=== PATIENT | male | born 2005 | race Caucasian/White ===

== ENCOUNTER 2023-08-20 06:38 | Observation (INO) | payer OTHER ==
[2023-08-19 14:11] VITALS: BMI 33.0
[2023-08-20] MEDS ORDERED: Acetaminophen 500 MG TAB ONE (08:17)
[2023-08-20] MEDS ORDERED: fentaNYL 50 mcg/mL 1 mL Vial ONE ×2 (08:27→08:57)
[2023-08-20] MEDS ORDERED: Midazolam HCl 2 mg/2 ml Vial ONE (08:27)
[2023-08-20] MEDS ORDERED: Bupivacaine PF 0.5% 30 ML VIAL ONE (08:28)
[2023-08-20] MEDS ORDERED: PROPOFOL 20 ML ONE ×2 (08:56→09:56)
[2023-08-20] MEDS ORDERED: Lidocaine 1% PF 5 ML VIAL ONE ×2 (08:57→09:55)
[2023-08-20] MEDS ORDERED: Sevoflurane 250 ML INH ANEST BOTTLE ONE (09:00)
[2023-08-20] MEDS ORDERED: traMADol HCl 50 MG TAB PO PRN ×2 (09:15)
[2023-08-20] MEDS ORDERED: Zolpidem Tartrate 5 MG TAB PO PRN (09:15)
[2023-08-20] MEDS ORDERED: HYDROcodone/Acetaminophen 10/325 mg Tablet PO PRN (09:15)
[2023-08-20] MEDS ORDERED: Ondansetron PF 4 MG/2 ML Vial IVP PRN (09:15)
[2023-08-20] MEDS ORDERED: Ropivacaine 0.2% 550 ML 550 ML NERVE BLCK SCH (09:15)
[2023-08-20] MEDS ORDERED: Promethazine HCl 25 MG/ML VIAL IM PRN ×2 (09:15→11:44)
[2023-08-20] MEDS ORDERED: fentaNYL 50 mcg/mL 1 mL Vial SLOW IVP PRN (09:15)
[2023-08-20] MEDS ORDERED: CEFAZOLIN 2 GM VIAL ONE (09:33)
[2023-08-20] MEDS ORDERED: Sodium Chloride 0.9% 100 ML ONE (09:33)
[2023-08-20] MEDS ORDERED: Dexamethasone 20 MG/5 ML VIAL ONE ×2 (09:55→09:58)
[2023-08-20] MEDS ORDERED: Bupivacaine HCl 0.5%/Epinephrine 1:200,000/PF 30 ml Vial ONE (09:55)
[2023-08-20] MEDS ORDERED: Ondansetron PF 4 MG/2 ML Vial ONE ×2 (09:55→11:18)
[2023-08-20] MEDS ORDERED: PROPOFOL 200 MG/20 ML VIAL ONE (09:55)
[2023-08-20] MEDS ORDERED: Ketorolac Tromethamine 30 MG/ML VIAL ONE ×2 (09:55→11:18)
[2023-08-20] MEDS ORDERED: Milk Of Magnesia 30 ML UDCUP PO PRN (10:09)
[2023-08-20] MEDS ORDERED: Methocarbamol 500 MG TAB PO PRN (10:09)
[2023-08-20] MEDS ORDERED: Bisacodyl 10 MG SUPP PR PRN (10:09)
[2023-08-20] MEDS ORDERED: Acetaminophen 500 MG TAB PO PRN (10:09)
[2023-08-20] MEDS ORDERED: diphenhydrAMINE 50 MG CAP PO PRN (10:09)
[2023-08-20] MEDS ORDERED: HYDROcodone/Acetaminophen 7.5/325 mg Tablet PO PRN ×2 (10:09)
[2023-08-20] MEDS ORDERED: Ondansetron HCl/PF 4 MG/2 ML Vial IVP PRN (11:44)
[2023-08-20] MEDS ORDERED: Fentanyl 250 MCG/5 ML VIAL ONE (12:02)
[2023-08-20] MEDS ORDERED: Meperidine HCl/PF 25 MG/ML VIAL ONE (12:06)
[2023-08-20] MEDS ORDERED: HYDROmorphone 0.5 MG/0.5 ML SYRINGE ONE ×2 (13:36→14:26)
[2023-08-20] MEDS ORDERED: CEFAZOLIN 2 GM in Sodium Chloride 0.9% 100 ML IVPB SCH (14:00)
[2023-08-20] MEDS: Ketorolac Tromethamine 30 MG/ML VIAL IVP SCH ×4 (17:00→23:09)
[2023-08-20] MEDS: Dextrose 5 %-0.45 % NaCl 1,000 ML IV SCH ×2 (18:14→20:26)
[2023-08-20] MEDS: CEFAZOLIN 2 GM in Sodium Chloride 0.9% 100 ML IVPB SCH (18:22)
[2023-08-20] MEDS: Famotidine 20 MG TAB PO SCH (20:25)
[2023-08-20] MEDS: HYDROcodone/Acetaminophen 10/325 mg Tablet PO PRN (20:35)
[2023-08-21] MEDS: Dextrose 5 %-0.45 % NaCl 1,000 ML IV SCH (00:33)
[2023-08-21] MEDS: CEFAZOLIN 2 GM in Sodium Chloride 0.9% 100 ML IVPB SCH (01:14)
[2023-08-21] MEDS: Ketorolac Tromethamine 30 MG/ML VIAL IVP SCH ×3 (01:14→12:05)
[2023-08-21] MEDS: HYDROcodone/Acetaminophen 10/325 mg Tablet PO PRN ×2 (01:23→09:44)
[2023-08-21 09:02] VITALS: BP 155/74; TEMP 97.9
[2023-08-21] MEDS: Famotidine 20 MG TAB PO SCH (09:45)
== END 2023-08-21 12:40 | disposition home or self-care (01) ==
LOC: SDC 06:38 → SURG B 11:48
PROVIDERS: ADMIT Orthopaedic Surgery; ATTEND Orthopaedic Surgery
PROC: 0MRN4JZ Replacement of Right Knee Bursa and Ligament with Synthetic Substitute, Percutaneous Endoscopic Approach (ICD-10-PCS; principal; 2023-08-20)
DX: S83.511A Sprain of anterior cruciate ligament of right knee, initial encounter (principal); S83.241A Other tear of medial meniscus, current injury, right knee, initial encounter; S83.411A Sprain of medial collateral ligament of right knee, initial encounter; X58.XXXA Exposure to other specified factors, initial encounter
CPT/HCPCS: A4306; C1713; C1889; J1100; J1170; J1885; J2175; J2250; J2405; J2704; J2795; J3010; J3490; J7042; S0020

== ENCOUNTER 2025-05-22 16:37 | Emergency (ER) | payer OTHER, SELFPAY ==
[~2025-05-22 16:37] MED LIST: Iopamidol-370 76% 500 ML MDV (1 ML CHARGE) ONE
[2025-05-22 18:44] LABS: Hematocrit 45.0 % (42.0-52.0); Hemoglobin 15.7 g/dL (14.0-18.0); Mean Corpuscular Hemoglobin 28.4 pg (27.0-31.0); Mean Corpuscular Volume 81.4 fL (78.0-98.0); Platelet Count 126 10x3/uL (130-400); Red Blood Cell (RBC) Count 5.53 mill/uL (4.70-6.10); White Blood Cell (WBC) Count 8.23 10x3/uL (4.8-10.8)
[2025-05-22] MEDS ORDERED: Ketorolac Tromethamine 30 MG (1 mL) VIAL ONE (18:47)
[2025-05-22 18:53] LABS: ALT (SGPT) 23 U/L (Less than 45); AST (SGOT) 35 U/L (11-34); Albumin 4.3 g/dL (3.1-4.5); Alkaline Phosphatase 99 U/L (40-110); Anion Gap 12 mmol/L (10-20); BUN (Urea Nitrogen) 8 mg/dL (8.9-20.6); Bilirubin, Total 1.1 mg/dL (0.3-1.2); Calc. Creatinine Clearance 0 mL/min (70-130); Calcium 9.2 mg/dL (7.8-10.44); Carbon Dioxide 21 mmol/L (22-29); Chloride 109 mmol/L (98-107); Globulin 3.5 g/dL (2.4-3.5); Glucose 88 mg/dL (70-105); Potassium 4.1 mmol/L (3.5-5.1); Sodium 138 mmol/L (136-145)
[2025-05-22 19:06] LABS: CAUTI Indications for Culture Dysuria,urgency,freq; Glucose, Urine (Dipstick) Normal (Negative); Leukocyte Negative Leu/uL (Negative); Protein, Urine (Dipstick) Negative (Neg-Trace); RBC/HPF 0-3 HPF (0-3); Specific Gravity, Urine 1.026 (1.002-1.036)
[2025-05-22 19:10] LABS: CK (CPK) 177 U/L (30-200); Lipase 29 U/L (8-78)
[2025-05-22 19:11] LABS: MONO NEGATIVE CONTROL ZONE White (Negative) (White); MONO POSITIVE CONTROL Pink Line (Positive) (PINK/RED); Mononucleosis POSITIVE (NEGATIVE)
[2025-05-22 19:14] LABS: Ovalocytes SLIGHT = 2-5 cells HPF (0-1); Platelet Adequacy Comment Platelets Decreased; Smudge Cells 14.0 %
[2025-05-22 19:15] LABS: Bacteria/HPF 1+ HPF (None Seen); Urine Culture Reflex No No
== END 2025-05-22 20:04 | disposition home or self-care (01) ==
LOC: ERS 16:37
DX: B27.90 Infectious mononucleosis, unspecified without complication (principal)
CPT/HCPCS: 36415; 74177; 80053; 81001; 82550; 83690; 85025; 86308; 96374; J1885